=== PATIENT | male | born 1985 | race Two or more races ===

== ENCOUNTER 2025-02-02 08:32 | Emergency (ER) | payer BC, MEDICAID ==
[~2025-02-02] VITALS: Ht 167.6 cm; Wt 65.7 kg
--- NOTE | 2025-02-02 08:56 | ED.PDOC ---
Musculoskeletal HPI Comments 39y M who presents to the ED for chief complaint of L hand swelling. Pt states he was playing tackle football with friends this past friday, 4 days prior and states he was tackled and landed on L hand hand and wrist to break fall. Pt states he has since been having L hand and wrist pain. Pt states he applied dressing to area to prevent from moving his L hand but has noticed increased pain with movement. Pt otherwise denies any associated symptoms. Pt denies any other symptoms at this time. Chief Complaint: Upper Extremity Time Seen by MD: 08:51 Reviewed Notes: Nurses Notes, Medications, Allergies Allergies: Coded Allergies: NO KNOWN ALLERGIES (Unverified , 02/02/25) Information Source: Patient Mode of Arrival: Ambulatory All Other Systems: Reviewed and Negative (see HPI) Physical Exam General Appearance: No Apparent Distress, Normal HEENT: Normal ENT Inspection, Pharynx Normal, TMs Normal Neck: Full Range of Motion, Non-Tender, Normal, Normal Inspection Respiratory: Chest Non-Tender, Lungs Clear, No Accessory Muscle Use, No Respiratory Distress, Normal Breath Sounds Cardiovascular: No Edema, No JVD, No Murmur, No Gallop, Normal Peripheral Pulses, Regular Rate/Rhythm Breast Exam: Deferred Gastrointestinal: No Organomegaly, Non Tender, No Pulsatile Mass, Normal Bowel Sounds, Soft Genitalia: Deferred Pelvic: Deferred Rectal: Deferred Extremities: Swelling (mild swelling to the L hand and wrist, no ecchymotes ), Other (normal flexion and extension ,2+ reflexes noted, neurosensation intact) Musculoskeletal : Apperance: Normal Neurologic: Alert, director case II-XII nml as Tested, No Motor Deficits, Normal Affect, Normal Mood, No Sensory Deficits Cerebellar Function: Normal Reflexes: Normal Skin: Dry, Normal Color, Warm Lymphatic: No Adenopathy Was a procedure done? Was a procedure done?: No Differential Diagnosis EXT Differential Diagnosis: Fracture, Sprain, Contusion, Strain X-Ray, Labs, Meds, VS Vital Signs Date Time Temp Pulse Resp B/P (MAP) Pulse Ox O2 Delivery O2 Flow Rate FiO2 02/02/25 08:44 99.1 120 16 153/91 (111) 98 99.1 [facility] [id number] [place] [id number] Ph: [phone] DIAGNOSTIC IMAGING Diagnostic Imaging Report : [id number] Signed PATIENT: CARINA CUBA ACCT: [id number] UNIT: [id number] : 1985 LOC: ER ROOM / BED: / AGE / SEX: 39 / M ADM STATUS: REG ER SERVICE 3 ORDERING PHYSICIAN: AUNG MCDOWELL NP PROCEDURE(s): LWRI - L WRIST 3+ VIEW XRAY REASON: fall. r/o fracture ORDER NUMBER(s): [id number], ACCESSION NUMBER(s): [id number] CLINICAL INDICATION: trauma. r/o fracture TECHNIQUE: 3 radiographic views of the left wrist were obtained. Comparison: None FINDINGS/IMPRESSION: There is no evidence of acute fracture or dislocation. The visualized joint space is well maintained. The alignment is anatomical. There is no radiopaque foreign body. ATED BY: SLADE ALVAREZ MD DICTATED DATE/TIME: 02/02/25922 SIGNED BY: SLADE ALVAREZ MD SIGNED DATE/TIME: 02/02/25922 CC: X-Ray, Labs, Meds, VS Comment 39y M who presents to the ED for chief complaint of L hand swelling Patient arrives alert and oriented, ABC's intact, afebrile, vital signs stable, saturating well in room air Diagnostic imaging ordered by me and results interpreted by radiology : PROCEDURE(s): LWRI - L WRIST 3+ VIEW XRA There is no evidence of acute fracture or dislocation. Patient does not currently demonstrate complications of fracture such as compartment syndrome, arterial or nerve injury. Interventions: Disposition: Patient will be discharged with strict return precautions and follow up with primary MD within 24-48 hours for further evaluation Patient is stable for discharge at this time. External notes reviewed. Test results and diagnostic imaging interpreted. All diagnostic findings, discharge care, education and instructions provided Follow-up with PCP in 2 to 3 days Patient verbalized understanding and agreed to treatment plan Vital signs stable, afebrile, no acute distress noted Patient ambulatory with strong steady gait Advised to return precautions for any new or worsening symptoms, return to ER immediately for re-evaluation Patient is aware that the purpose of this visit was for an acute medical emergency requiring emergent stabilization. Chronic conditions, including malignancies have not been ruled out. Patient is instructed to follow up with PCP as directed and discharge instructions for continued care and workup. If unable to arrange follow-up, patient is to return to the emergency department for reassessment. Patient (parent or legal guardian if applicable) was given verbal and written discharge instructions and acknowledges understanding. Additional MDM Review of External, Non-ED records: External records reviewed. Discussion with independent historian (EMS, family) history obtained from the patient/parents (if applicable) at bedside Chronic conditions affecting care: None Social determinants of health affecting care: None Consideration of admission (observation or admission): I considered escalation of care to admission for this patient, however given the reassuring workup, the patient is safe for outpatient management. Time of 1ST Reevaluation: 10:14 Reevaluation 1ST: Improved Patient Education/Counseling: Diagnosis, Treatment Family Education/Counseling: No Family Present Departure 1 Departure Time of Disposition: 10:16 Impression: Primary Impression: Wrist sprain Qualified Codes: S63.502A - Unspecified sprain of left wrist, initial encounter Additional Impression: Elevated blood pressure reading Disposition: HOME / SELF CARE / HOMELESS Condition: Stable Additional Instructions: Today recommend importance of regular exercise Sodium restriction DASH diet Limit or illuminate alcohol intake Follow-up with PCP e-Prescriptions Ibuprofen (Ibuprofen) 600 Mg Tab 1 TAB PO TID for 10 Days, #30 TAB 0 Refills Prov: AUNG MCDOWELL NP 02/02/25 Critical Care Note Critical Care Time?: No Stability Stability form required: No Heart Score Heart Score: Heart Score Response (Comments) Value History N/A 0 EKG N/A 0 Age N/A 0 Risk Factors N/A 0 Troponin N/A 0 Total 0 I personally scribed for AUNG MCDOWELL NP (JAMIE) on 02/02/25 at 08:56. Electronically submitted by Matias Abraham ([email or web address]). I personally scribed for AUNG MCDOWELL NP (JAMIE) on 02/02/25 at 08:57. Electronically submitted by Matias Abraham ([email or web address]). I personally scribed for AUNG MCDOWELL NP (JAMIE) on 02/02/25 at 09:33. Electronically submitted by Matias Abraham ([email or web address]). AUNG MCDOWELL NP 9, 2025 08:56
--- NOTE | 2025-02-02 09:26 | DVH ---
CLINICAL INDICATION: trauma. r/o fracture TECHNIQUE: 3 radiographic views of the left wrist were obtained. Comparison: None FINDINGS/IMPRESSION: There is no evidence of acute fracture or dislocation. The visualized joint space is well maintained. The alignment is anatomical. There is no radiopaque foreign body.
[2025-02-02 10:13] VITALS: BP 154/101; PULSE 98; RESP 20; TEMP 98.8; O2SAT 99
[2025-02-02] MEDS ORDERED: IBUP-1454 PO (10:17)
== END 2025-02-02 10:23 | disposition home or self-care (01) ==
LOC: ER 08:32
DX: S63.502A Unspecified sprain of left wrist, initial encounter (principal); X58.XXXA Exposure to other specified factors, initial encounter; Y93.61 Activity, american tackle football; Y92.89 Other specified places as the place of occurrence of the external cause; Y99.8 Other external cause status
CPT/HCPCS: 73110